=== PATIENT | female | born 1950 | race Caucasian/White ===

== ENCOUNTER → 2016-10-27 | Outpatient (CLI) | payer BC ==
[2016-10-27 11:21] LABS: BASO % 0.5 %; BASO ABS # 0.02 K/uL (0-0.2); COMPLETE YES; EOS % 1.1 %; IG% 0.3 %; LYMPH % 41.8 %; LYMPH ABS # 1.55 K/uL (1.2-3.4); MEAN CELL VOLUME 96.8 fL (80-100); MEAN CORPUSCULAR HEMOGLOBIN 30.9 pg (25-34); MEAN CORPUSCULAR HGB CONC 31.9 g/dl (32-36); MEAN PLATELET VOLUME 9.6 fL (7.4-10.4); MONO % 5.9 %; NEUT % 50.4 %; PLATELET COUNT 209 K/uL (130-400); RED BLOOD COUNT 4.34 M/uL (4.2-5.4); WHITE BLOOD COUNT 3.71 K/uL (4.8-10.8)
[2016-10-27 11:37] LABS: CALCIUM 8.7 mg/dl (8.5-10.1)
[2016-10-27 11:40] LABS: ALB/GLOB RATIO 1.1 (0.9-2); ALT/SGPT 24 U/L (12-78); BLOOD UREA NITROGEN 18 mg/dl (7-18); BUN/CREATININE RATIO 22.3 (10-20); CARBON DIOXIDE 28 mmol/L (21-32); CHLORIDE 108 mmol/L (98-107); CHOLESTEROL 222 mg/dl (0-200); CREATININE 0.81 mg/dl (0.60-1.20); GLUCOSE 79 mg/dl (70-99); POTASSIUM 3.9 mmol/L (3.5-5.1); SODIUM 144 mmol/L (136-145); TRIGLYCERIDES 119 mg/dl (0-150); VERY LOW DENSITY LIPOPROT CALC 24 mg/dl
[2016-10-27 11:50] LABS: ALKALINE PHOSPHATASE 62 U/L (45-117); AST/SGOT 21 U/L (15-37); CHOLESTEROL/HDL RATIO 2.8; HDL CHOLESTEROL 78 mg/dl; LDL CHOLESTEROL CALCULATED 120 mg/dl
== END | disposition home or self-care (01) ==
LOC: C.LABBC 07:43
PROVIDERS: ATTEND Internal Medicine
DX: Z00.00 Encounter for general adult medical examination without abnormal findings (principal); Z13.220 Encounter for screening for lipoid disorders; Z13.29 Encounter for screening for other suspected endocrine disorder

== ENCOUNTER → 2017-05-04 | Day surgery (SDC) | payer BC ==
[2017-04-28 07:37] VITALS: Ht 167.6 cm; Wt 63.2 kg
[~2017-05-04] VITALS: Ht 167.6 cm; Wt 63.2 kg
[~2017-05-04] MED LIST: 500ML BSS 0.3ML EPI 1:1000PF IRRIG ONE; ACETAMINOPHEN 325 MG TAB PO PRN; AMVISC PLUS 0.8ML SYRINGE INT OCU ONE; ATROPINE SULFATE 0.1 MG/ML 5ML SYR IV PRN; BRIM0.2S OPB; BRIMONIDINE TART 0.2% OP SOLN PER DROP CHARGE ONE; BSS FLUSH ONE; CALC600T9 PO; DICL-201 PO; EFIN1SOL TOP; ENDOCOAT 0.85ML SYRINGE INT OCU ONE; ESTR0.5T3 PO; EpINEphrine INJ 1MG/ML AMP 1 MG/ML AMP ONE; FENTANYL CITRATE INJ 50 MCG/1 ML 2 ML VIAL ONE; LACTATED RINGER'S 1000ML 500 ML IV SCH; LATA0.5S OPB; LIDOCAINE 4% OP SOLN DROP CHARGE ONE; LIDOCAINE 4% OP SOLN DROP CHARGE OPR SCH; LIDOCAINE HCL 1% MPF 2 ML VIAL ONE; LIFI5DRO OPB; MIDAZOLAM HCL 1 MG/ML 2ML VIAL ONE; MOXIFLOXACIN OPH SOLN PER DROP CHARGE ONE; MULT-506 PO; OMEP40CA41 PO; POVIDONE-IODINE OP SOLN 30 ML BTL ONE; PROG100C6 PO; PROPARACAINE 0.5% OP SOLN PER DROP CHARGE OPR SCH; PROPARACAINE HCL 0.5% OP SOLN 15 ML BTL OPR ONE; TOBRAMYCIN/DEXAMETHASONE OPH OINT PER APPLN CHARGE ONE
[2017-05-04] MEDS: PHENYLEPHRINE HCL 2.5% OP SOLN PER DROP CHARGE OPR SCH ×2 (08:39→08:47)
[2017-05-04] MEDS: TROPICAMIDE 1% OP SOLN PER DROP CHARGE OPR SCH ×2 (08:40→08:48)
[2017-05-04] MEDS: CYCLOPENTOLATE HCL 1% OP SOLN PER DROP CHARGE OPR SCH ×2 (08:43→08:49)
[2017-05-04] MEDS: KETOROLAC 0.5% OP SOLN PER DROP CHARGE OPR SCH ×2 (08:45→08:49)
[2017-05-04] MEDS: MOXIFLOXACIN OPH SOLN PER DROP CHARGE OPR SCH ×2 (08:46→08:52)
--- NOTE | 2017-05-04 08:56 | History & Physical Bridge - [place] ---
H&P Re-Evaluation Bridge Note: I have examined the patient, reviewed the History & Physical and in the interval since the performance of the History & Physical I have noted the following changes of clinical significance: No changes noted
[2017-05-04 10:12] VITALS: TEMP 36.1
--- NOTE | 2017-05-04 10:12 | Discharge Instructions-SurgCtr ---
Discharge Instructions Date of Service May 04, 2017. Visit Reason for Visit: Cataract Right Eye Discharge Discharge Diagnosis / Problem: cataract left eye Discharge Goals Goal(s): Improve function Activity Recommendations Activity Limitations: per Instructions/Follow-up section Lifting Limitations: no more than 5 pounds Anesthesia . Post Anesthesia Instructions: If you have had General Anesthesia or IV Sedation: * Do not drive today. * Resume driving when surgeon permits. * Do not make important decisions or sign legal documents today. * Call surgeon for: 1. Temperature elevations greater than 101 degrees F. 2. Uncontrollable pain. 3. Excessive bleeding. 4. Persistent nausea and vomiting. 5. Medication intolerance (nausea, vomiting or rash). * For nausea and vomiting use only clear liquids such as: tea, soda, bouillon until nausea subsides, then gradually increase diet as tolerated. * If you have any concerns or questions, call your surgeon's office. If physician is unavailable and it is an emergency, call 911 or go to the nearest emergency room. . Instructions / Follow-Up Instructions / Follow-Up ACTIVITY RECOMMENDATIONS: * Light activities * You may walk outside, read, watch television. * Mild irritation and blurred vision are common for the first few days, redness around the white part of the eye is common. MEDICATIONS: Resume previous medications unless instructed otherwise by your surgeon. Eye drops (today and tomorrow): Cipro - one drop in operative eye every 2 hours while awake Prednisolone 1% - one drop in operative eye every 2 hours while awake Ilevro - one drop in operative eye 1 x a day Combigan - one drop in both eyes twice daily Latanoprost - one drop both eyes 1 times daily SPECIAL CARE INSTRUCTIONS: * If any problems or concerns, please call Dr. Live's office at . * Keep plastic shield taped over eye to sleep at night. * Keep plastic shield taped over eye except to administer eye drops. * Keep plastic shield on until office visit the following day. FOLLOW UP VISIT: Follow-up with Dr. Live in the [place] office as scheduled. If not already scheduled, please call the office at . Diet Recommendations Home Diet: resume previous diet Procedures Procedures Performed: Right Cataract Phacoemulsification With Intraocular Lens Implant; Toric Lens Pending Studies Studies pending at discharge: no Medical Emergencies . Who to Call and When: Medical Emergencies: If at any time you feel your situation is an emergency, please call 911 immediately. . Non-Emergent Contact Non-Emergency issues call your: Repairing Calibrator . . "Provider Documentation" section prepared by Dylan Live. .
--- NOTE | 2017-05-04 10:16 | [facility] Operative Report ---
Operative Report Operative Date May 04, 2017. Pre-Operative Diagnosis Cataract right eye Post-Operative Diagnosis Same Procedure(s) Performed Right Cataract Phacoemulsification With Intraocular Lens Implant; Toric Lens and femtosecond laser Surgeon Public Safety Director Surgeon(s) None Estimated Blood Loss Zero Findings cataract right eye Fluids (cc crystalloids) see anesthesia record Specimens None Drains none Anesthesia local with sedation Complication(s) None Disposition Recovery Room / PACU Implants ajit [id number] 20.0 Indications decreased vision right eye Description of Procedure After informed consent was obtained in the holding area the patient was wheeled back to the femtosecond laser room where the right eye was docked with the laser. The laser was used to make the primary incision, capsular rhexis and prechop of the lens. The patient was then taken to the operating room where cardiac monitoring leads and oxygen by nasal cannula was administered by Anesthesia. Gentle IV sedation was given, and the patient's right eye was prepped and draped in usual sterile fashion. A wire lid speculum was placed into the right eye and the operating microscope was swung into position. Using 0.12 forceps and a Supersharp blade a paracentesis port was made 2 o'clock hours away from the 9 o'clock position of the patient's right eye. 1% non-preserved Lidocaine was then injected into the anterior chamber for anesthesia. Endocoat was injected into the anterior chamber. A Paul spatula was then used to enter the shelved clear corneal incision at the 9 o'clock position of the right eye. Amvisc was injected into the anterior chamber and a cystotome and Utrata forceps were used to perform a curvilinear capsulorrhexis. BSS on a hydrodissection cannula was used to hydrodissect the lens nucleus away from the capsular bag. The phacoemulsification handpiece was then used in a stop and chop fashion to remove the lens nucleus. The irrigation and aspiration handpiece was then used to remove the residual cortical material. Amvisc was injected into the capsular bag and anterior chamber and a AJIT XYF191 20.0 Diopter intraocular lens was injected into the capsular bag. Irrigation and aspiration handpiece was used to remove the residual viscoelastic material. The wounds were hydrated and noted to be watertight. The wire lid speculum was removed from the eye. Vigamox, Brimonidine, and TobraDex ointment were placed on the eye and it was shielded. It should be noted that EndoCoat was used extensively during the case to protect the cornea endothelium. DISPOSITION: The patient tolerated the procedure well and was wheeled to the post anesthesia care unit in stable condition. I attest to the content of the Intraoperative Record and any orders documented therein. Any exceptions are noted below. I attest to the content of the Intraoperative Record and any orders documented therein. Any exceptions are noted below.
[2017-05-04 10:36] VITALS: BP 109/71; PULSE 58; O2SAT 100
--- NOTE | 2017-05-04 10:45 | Anesthesia Progress Nt - [facility] ---
Anesthesia Post Op Note Date & Time May 04, 2017 at 10:45 Vital Signs Pain Intensity: 0 Vital Signs Past 12 Hours Date Time Temp Pulse Resp B/P (MAP) Pulse Ox O2 Delivery O2 Flow Rate FiO2 05/04/17 10:36 58 16 109/71 (84) 100 Room Air 05/04/17 10:12 36.1 61 16 111/65 (80) 100 Room Air 05/04/17 09:43 60 16 139/101 99 05/04/17 09:40 61 16 137/72 100 05/04/17 08:30 36.3 70 18 115/76 (89) 100 Room Air Notes Mental Status: alert / awake / arousable, participated in evaluation Pt Amnestic to Procedure: Yes Nausea / Vomiting: adequately controlled Pain: adequately controlled Airway Patency, RR, SpO2: stable & adequate BP & HR: stable & adequate Hydration State: stable & adequate Anesthetic Complications: no major complications apparent
== END | disposition home or self-care (01) ==
LOC: X.SURG 08:15
PROVIDERS: ATTEND Ophthalmology
DX: H25.11 Age-related nuclear cataract, right eye (principal); K21.9 Gastro-esophageal reflux disease without esophagitis

== ENCOUNTER → 2017-09-08 | Outpatient (CLI) | payer OTHER ==
[~2017-09-08] MED LIST changes: -500ML BSS 0.3ML EPI 1:1000PF IRRIG ONE; -ACETAMINOPHEN 325 MG TAB PO PRN; -AMVISC PLUS 0.8ML SYRINGE INT OCU ONE; -ATROPINE SULFATE 0.1 MG/ML 5ML SYR IV PRN; -BRIMONIDINE TART 0.2% OP SOLN PER DROP CHARGE ONE; -BSS FLUSH ONE; -ENDOCOAT 0.85ML SYRINGE INT OCU ONE; -EpINEphrine INJ 1MG/ML AMP 1 MG/ML AMP ONE; -FENTANYL CITRATE INJ 50 MCG/1 ML 2 ML VIAL ONE; -LACTATED RINGER'S 1000ML 500 ML IV SCH; -LIDOCAINE 4% OP SOLN DROP CHARGE ONE; -LIDOCAINE 4% OP SOLN DROP CHARGE OPR SCH; -LIDOCAINE HCL 1% MPF 2 ML VIAL ONE; -MIDAZOLAM HCL 1 MG/ML 2ML VIAL ONE; -MOXIFLOXACIN OPH SOLN PER DROP CHARGE ONE; -POVIDONE-IODINE OP SOLN 30 ML BTL ONE; -PROPARACAINE 0.5% OP SOLN PER DROP CHARGE OPR SCH; -PROPARACAINE HCL 0.5% OP SOLN 15 ML BTL OPR ONE; -TOBRAMYCIN/DEXAMETHASONE OPH OINT PER APPLN CHARGE ONE
[2017-09-08 13:24] LABS: BASO % 0.2 %; BASO ABS # 0.01 K/uL (0-0.2); EOS % 2.5 %; EOS ABS # 0.13 K/uL (0-0.5); HEMATOCRIT 43.1 % (37-47); HEMOGLOBIN 14.1 g/dL (12.0-16.0); IG# 0.01 K/uL (0.00-0.02); LYMPH % 28.4 %; LYMPH ABS # 1.45 K/uL (1.2-3.4); MEAN CELL VOLUME 95.4 fL (80-100); MEAN CORPUSCULAR HEMOGLOBIN 31.2 pg (25-34); MEAN CORPUSCULAR HGB CONC 32.7 g/dl (32-36); MEAN PLATELET VOLUME 9.3 fL (7.4-10.4); MONO % 7.6 %; MONO ABS # 0.39 K/uL (0.11-0.59); NEUT % 61.1 %; NEUT ABS # 3.11 K/uL (1.4-6.5); PLATELET COUNT 221 K/uL (130-400); RED CELL DISTRIBUTION WIDTH CV 13.2 % (11.5-14.5); RED CELL DISTRIBUTION WIDTH SD 45.5 fL (36.4-46.3)
[2017-09-08 14:05] LABS: ALBUMIN 3.7 gm/dl (3.4-5.0); ALT/SGPT 27 U/L (12-78); AST/SGOT 24 U/L (15-37); BLOOD UREA NITROGEN 28 mg/dl (7-18); CALCIUM 9.3 mg/dl (8.5-10.1); CARBON DIOXIDE 28 mmol/L (21-32); CREATININE 0.88 mg/dl (0.60-1.20); GLUCOSE 85 mg/dl (70-99); POTASSIUM 4.2 mmol/L (3.5-5.1); SODIUM 137 mmol/L (136-145)
[2017-09-08 14:08] LABS: ALKALINE PHOSPHATASE 63 U/L (45-117); TOTAL PROTEIN 7.2 gm/dl (6.4-8.2)
== END | disposition home or self-care (01) ==
LOC: C.LABBC 11:19
PROVIDERS: ATTEND Family Medicine Adult Medicine
DX: Z00.00 Encounter for general adult medical examination without abnormal findings (principal); D72.819 Decreased white blood cell count, unspecified

== ENCOUNTER 2020-03-16 06:16 | Inpatient (IN) ==
--- NOTE | 2020-03-02 14:45 | PAT Medication Instructions ---
Medication Instructions Date of Service March 02, 2020 Home Medications Medication Instructions Recorded diphenoxylate-atropine 2.5 1 tab PO .COMPLEX PRN #120 tab 12/31/18 mg-0.025 mg tablet progesterone micronized 100 mg See Rx Instructions .ROUTE 06/07/19 capsule .COMPLEX #42 capsule omeprazole 40 mg capsule,delayed 40 mg PO QAM #90 cap 08/03/19 release estradiol 0.5 mg tablet 0.5 mg PO QPM #90 tab 09/01/19 diclofenac sodium 75 mg 75 mg PO BID #180 tab 09/09/19 tablet,delayed release diphenoxylate-atropine 2.5 mg-0.025 mg tablet 1 tab PO .COMPLEX PRN Calcium 600 + D(3) 1 cap PO QAM Combigan 1 drp OPHTHALMIC (EYE) BID Jublia 1 applic TOPICAL HS Restasis 1 drp OPHTHALMIC (EYE) Q12H latanoprost (PF) 1 drp OPHTHALMIC (EYE) PM multivitamin 1 tab PO HS psyllium husk [Metamucil] 0.4 g PO TID progesterone micronized 100 mg capsule See Rx Instructions .ROUTE .COMPLEX omeprazole 40 mg capsule,delayed release 40 mg PO QAM estradiol 0.5 mg tablet 0.5 mg PO QPM diclofenac sodium 75 mg tablet,delayed release 75 mg PO BID Continue as directed progesterone micronized 100 mg capsule See Rx Instructions .ROUTE .COMPLEX (unless surgeon directs otherwise) estradiol 0.5 mg tablet 0.5 mg PO QPM (unless surgeon directs otherwise) ASK your surgeon for instructions diclofenac sodium 75 mg tablet,delayed release 75 mg PO BID STOP taking 24 hours before surgery Jublia 1 applic TOPICAL HS DO NOT take the morning of surgery psyllium husk [Metamucil] 0.4 g PO TID Calcium 600 + D(3) 1 cap PO QAM diphenoxylate-atropine 2.5 mg-0.025 mg tablet 1 tab PO .COMPLEX PRN Take morning of surgery With a small sip of water, OTHERWISE NOTHING TO EAT OR DRINK AFTER MIDNIGHT: omeprazole 40 mg capsule,delayed release 40 mg PO QAM Restasis 1 drp OPHTHALMIC (EYE) Q12H Combigan 1 drp OPHTHALMIC (EYE) BID Take evening before surgery diphenoxylate-atropine 2.5 mg-0.025 mg tablet 1 tab PO .COMPLEX PRN (if needed) Combigan 1 drp OPHTHALMIC (EYE) BID Restasis 1 drp OPHTHALMIC (EYE) Q12H latanoprost (PF) 1 drp OPHTHALMIC (EYE) PM multivitamin 1 tab PO HS psyllium husk [Metamucil] 0.4 g PO TID Other Notes If you have any questions please call us at [phone] or [phone] or [phone] or [phone]
--- NOTE | 2020-03-06 12:04 | Anesthesiology Consultation ---
Date of Service March 06, 2020 Assessment & Plan (1) Encounter for pre-operative examination: Chart Review Chart Review: Acceptable Risk for Surgery (pending preop Covid testing results ) and Patient seen in Pre Admission Testing Pt is a colon - concerned with ET tube- would like as much caution used as possible Per PAT appt on 03/06/20, pt traveled to [place] to sister's house. Did not go into public. Wears PPE. Returned around 01/30/20. No known Covid positive contacts or Covid related symptoms. Scheduled for preop Covid testing 03/09/20. Educated on importance of self quarantining, social distancing and wearing mask in public both for the patient and household contacts. Seen by PCP 01/09/20= seen for annual exam. Aware of ongoing neck pain- following with pain management. Addendum to PCP note 02/24/20= "Patient is now scheduled for cervical spine surgery. There has been no other interim changes to her health. SHe is thus medically stable to proceed." Teaching & Discussion Pre-Anesthesia Teaching/Discussion Notes: Instructed NPO after midnight before surgery,except medications with 15 cc of water. Medication instructions provided according to the PAT guidelines. History Surgery Operation Date: 03/16/20 12:50 Proposed Procedures p C4-C6 Anterior Cervical Discectomy and Fusion, C5 Corpectomy, Spinal Cord Monitoring - Ty Lara DO Height/Weight Height: 5 ft 6 in Weight: 63.8 kg Allergies Allergy/AdvReac Type Severity Reaction Status Date / Time No Known Allergies Allergy Verified 02/29/20 14:12 Medications Home Medications Medication Instructions Recorded Confirmed Last Taken diphenoxylate-atropine 2.5 1 tab PO .COMPLEX PRN #120 tab 12/31/18 02/29/20 02/20/19 mg-0.025 mg tablet Calcium 600 + D(3) 1 cap PO QAM 01/21/19 02/29/20 02/20/19 Combigan 1 drp OPHTHALMIC (EYE) BID 01/21/19 02/29/20 02/20/19 Jublia 1 applic TOPICAL HS 01/21/19 02/29/20 02/20/19 Restasis 1 drp OPHTHALMIC (EYE) Q12H 01/21/19 02/29/20 02/20/19 latanoprost (PF) 1 drp OPHTHALMIC (EYE) PM 01/21/19 02/29/20 02/20/19 multivitamin 1 tab PO HS 01/21/19 02/29/20 02/20/19 psyllium husk [Metamucil] 0.4 g PO TID 01/21/19 02/29/20 02/20/19 progesterone micronized 100 mg See Rx Instructions .ROUTE 06/07/19 02/29/20 Unknown capsule .COMPLEX #42 capsule omeprazole 40 mg capsule,delayed 40 mg PO QAM #90 cap 08/03/19 02/29/20 Unknown release estradiol 0.5 mg tablet 0.5 mg PO QPM #90 tab 09/01/19 02/29/20 Unknown diclofenac sodium 75 mg 75 mg PO BID #180 tab 09/09/19 02/29/20 Unknown tablet,delayed release Past Medical History Medical History (Updated 03/06/20 @ 16:25 by Amelia Blackman PA-C) Chronic back pain Chronic leukopenia Under observation by PCP - stable - WBC ct WNL at [facility] appt on 03/06/20 GERD (gastroesophageal reflux disease) Well controlled and stable with Omeprazole Glaucoma Stable -follows routinely with eye doctor Osteopenia Exercise / Class Metabolic Activity II 4-5 Yardwork/Stairs/Walk up hill (one flight of stairs - no chest pain or SOB - walks 7 miles daily ) Past Family History Family History Mother Family history of diabetes mellitus Myocardial infarction Denies family history of Ovarian cancer Prostate cancer Breast cancer Colorectal cancer Past Surgical History Surgical History History of cataract surgery bilat History of colonoscopy History of esophagogastroduodenoscopy (EGD) [place] teeth extracted Past Anesthesia History No Hx of Anesthesia Complications and No Family Hx of Anesthesia Complications History of PONV No Hx of PONV and No Hx of Motion Sickness Social History Smoking Status: Never smoker Do You Dip or Chew Tobacco: No Hx Alcohol Use: Yes Alcohol type: wine alcohol intake frequency: a few times a week Hx Substance Use: No substance use type: does not use Review of Systems Occ snoring - hx of sleep study- no BRADEN Patient denies chest pain, shortness of breath, dyspnea on exertion, cough, wheezing, palpitations. No hx of seizures, stroke, ID. No hx of blood clots or blood transfusions Physical Exam Vital Signs VITALS BP 137/83 P 67 TEMP 97.8 SP02 100% RESP 16 Constitutional no acute distress ENMT Mouth: no TMJ clicking Thyromental Distance: > or= 3.5 Finger Breadths (3.5) Mallampati Class: I Denies missing teeth Crowns to side teeth and molars Neck + limited neck extension (minimal ) Respiratory normal respiratory effort; no respiratory distress Auscultation: lungs clear to auscultation bilaterally; no wheezes Cardiovascular Rate/Rhythm: regular rate and regular rhythm Heart Sounds: no murmur Vessels: no carotid bruit Musculoskeletal Spine: + pain with cervical ROM (mild ) Neurologic moves all extremities Psychiatric Orientation: alert Testing Laboratory Results 03/06/20 12:45 03/06/20 12:45 PT 10.4 Seconds (9.0-12.0) 03/06/20 12:45 INR 1.0 (0.9-1.1) 03/06/20 12:45 APTT 26.6 Seconds (21.0-31.0) 03/06/20 12:45 Urine Color Yellow 03/06/20 12:45 Urine Appearance Clear (Clear) 03/06/20 12:45 Urine pH 6.5 (4.5-7.5) 03/06/20 12:45 Ur Specific [place] 1.010 (1.000-1.030) 03/06/20 12:45 Urine Protein Negative (Negative) 03/06/20 12:45 Urine Glucose (UA) Negative (Negative) 03/06/20 12:45 Urine Ketones Negative (Negative) 03/06/20 12:45 Urine Nitrite Negative (Negative) 03/06/20 12:45 Ur Leukocyte Esterase Negative (Negative) 03/06/20 12:45 Blood Type O Positive 03/06/20 12:45 Antibody Screen NEGATIVE 03/06/20 12:45 Electrocardiogram Date: 03/06/20 Findings: + SB @ (57) Chest X-Ray Date: 03/06/20 Findings: + NAD
--- NOTE | 2020-03-06 13:10 | XRay Report ---
XR chest Pre-admission PA/Lat CLINICAL HISTORY: Preoperative chest COMPARISON STUDY: No previous studies for comparison. FINDINGS: The cardiac and mediastinal contours are normal. There is no evidence of focal pulmonary co nsolidation. There is no evidence of failure. No pleural effusions are visualized.[ IMPRESSION: No active disease in the chest. ACT 112: Negative or not required by law. Electronically signed by: Aly Clemons M.D. 03/06/2020 1:08 PM
[2020-03-06 13:35] LABS: Appearance Urine Clear (Clear); Bilirubin Urine Negative (Negative); Blood Urine Negative (Negative); Color Urine Yellow; Glucose Urine UA Negative (Negative); Ketones Urine Negative (Negative); Leukocyte Esterase Urine Negative (Negative); Nitrite Urine Negative (Negative); Protein Urine Negative (Negative); Urobilinogen Urine Negative (Negative); pH Urine 6.5 (4.5-7.5)
[2020-03-06 13:36] LABS: Basophils # (auto) 0.03 K/uL (0-0.2); Basophils % (auto) 0.6 %; Eosinophils % (auto) 1.8 %; Hematocrit (blood only) 42.1 % (37-47); Hemoglobin 13.5 g/dL (12.0-16.0); Lymphocytes # (auto) 1.91 K/uL (1.2-3.4); Lymphocytes % (auto) 35.3 %; Mean Corpuscular Hemoglobin 30.8 pg (25-34); Mean Corpuscular Hgb Conc 32.1 g/dL (32-36); Mean Corpuscular Volume 95.9 fL (80-100); Mean Platelet Volume 9.2 fL (7.4-10.4); Monocytes # (auto) 0.37 K/uL (0.11-0.59); Monocytes % (auto) 6.8 %; Neutrophils % (auto) 55.5 %; Platelet Count 211 K/uL (130-400); RDW Coefficient of Variation 13.3 % (11.5-14.5); RDW Standard Deviation 46.8 fL (36.4-46.3); Red Blood Count 4.39 M/uL (4.2-5.4); White Blood Count 5.41 K/uL (4.8-10.8)
[2020-03-06 13:47] LABS: Partial Thromboplastin Time 26.6 Seconds (21.0-31.0); Prothrombin Time 10.4 Seconds (9.0-12.0)
[2020-03-06 14:23] LABS: BUN Creatinine Ratio 25.2 (10-20); Calcium 9.1 mg/dl (8.5-10.1); Creatinine Clr Calc Pharmacy 61.6 ml/min; Est GFR (African American) 84.6; Potassium 4.9 mmol/L (3.5-5.1)
--- NOTE | 2020-03-06 16:22 | Electrocardiogram Report ---
Test Reason : Blood Pressure : / mmHG Vent. Rate : 057 BPM Atrial Rate : 057 BPM P-R Int : 170 ms QRS Dur : 070 ms QT Int : 424 ms P-R-T Axes : 065 011 055 degrees QTc Int : 412 ms Sinus bradycardia Otherwise normal ECG No previous ECGs available Confirmed by Lamberto Lopez ([id number]) on 03/06/2020 4:21:30 PM Referred By: Ty Lara Confirmed By:Lamberto Lopez
[~2020-03-16 06:16] MED LIST changes: +ACETAMINOPHEN 500 MG TAB PO SCH; -BRIM0.2S OPB; -CALC600T9 PO; +CeleBREX 200 MG CAP PO SCH; -DICL-201 PO; -EFIN1SOL TOP; -ESTR0.5T3 PO; +GABAPENTIN 300 MG CAP PO SCH; -LATA0.5S OPB; -LIFI5DRO OPB; +LR 15ML/HR IV SCH; -MULT-506 PO; -OMEP40CA41 PO; -PROG100C6 PO; +ceFAZolin 1000MG 1,000 MG/7.5 ML SYR IV SCH
[2020-03-16] MEDS ORDERED: KETAMINE 50 MG/5 ML SYRINGE ONE (06:51)
[2020-03-16] MEDS ORDERED: ONDANSETRON INJ 2 MG/ML 2 ML VIAL ONE (06:51)
[2020-03-16] MEDS ORDERED: LIDOCAINE HCL 2% 2 ML VIAL/AMP(20MG/ML) INFIL ONE (06:51)
[2020-03-16] MEDS ORDERED: PROPOFOL IV EMULSION 10 MG/ML 20 ML VIAL IV ONE (06:51)
[2020-03-16] MEDS ORDERED: MIDAZOLAM HCL 1 MG/ML 2ML VIAL ONE (06:51)
[2020-03-16] MEDS ORDERED: DEXAMETHASONE SOD INJ 4 MG/ML VIAL ONE (06:51)
[2020-03-16] MEDS ORDERED: fentaNYL citrate 100 MCG/2 ML VIAL ONE (06:51)
[2020-03-16] MEDS ORDERED: PROMETHAZINE HCL 6.25 MG in SODIUM CHLORIDE 0.9% 50 ML IV PRN (07:00)
[2020-03-16] MEDS ORDERED: ONDANSETRON INJ 2 MG/ML 2 ML VIAL IV PRN ×2 (07:00→11:03)
[2020-03-16] MEDS ORDERED: HYDROmorphone INJ 1 MG/ML SYRINGE IV PRN ×2 (07:00→11:03)
[2020-03-16] MEDS ORDERED: ATROPINE SULFATE 0.1 MG/ML 10ML SYR IV PRN (07:00)
[2020-03-16] MEDS ORDERED: BACITRACIN INJ 50,000 UNIT VIAL ONE (07:06)
--- NOTE | 2020-03-16 07:27 | History & Physical Bridge Note ---
Date of Service March 16, 2020 History & Physical Bridge Note I have examined the patient, reviewed the History & Physical and in the interval since the performance of the History & Physical I have noted the following changes of clinical significance: no changes noted
--- NOTE | 2020-03-16 07:28 | History & Physical Report ---
Date of Service March 16, 2020 Assessment & Plan (1) Cervical stenosis of spinal canal: Admission and Anticipated Discharge Date Admission Date: C4-C6 anterior cervical discectomy and fusion, C5 corpectomy History of Present Illness Chief Complaint: Neck and arm pain Primary Care Provider: Kalyani Blue MD This is a 69-year-old female who presents with chronic persistent neck and arm symptoms after failing a course of nonoperative care is here for surgical invention. Allergies Allergy/AdvReac Type Severity Reaction Status Date / Time No Known Allergies Allergy Verified 03/16/20 06:32 Home Medications Home Medications Medication Instructions Recorded Confirmed Type diphenoxylate-atropine 2.5 1 tab PO .COMPLEX PRN #120 tab 12/31/18 03/16/20 Rx mg-0.025 mg tablet Calcium 600 + D(3) 1 cap PO QAM 01/21/19 03/16/20 History Combigan 1 drp OPHTHALMIC (EYE) BID 01/21/19 03/16/20 History Jublia 1 applic TOPICAL HS 01/21/19 03/16/20 History Restasis 1 drp OPHTHALMIC (EYE) Q12H 01/21/19 03/16/20 History latanoprost (PF) 1 drp OPHTHALMIC (EYE) PM 01/21/19 03/16/20 History multivitamin 1 tab PO HS 01/21/19 03/16/20 History psyllium husk [Metamucil] 0.4 g PO TID 01/21/19 03/16/20 History progesterone micronized 100 mg See Rx Instructions .ROUTE 06/07/19 03/16/20 Rx capsule .COMPLEX #42 capsule omeprazole 40 mg capsule,delayed 40 mg PO QAM #90 cap 08/03/19 03/16/20 Rx release estradiol 0.5 mg tablet 0.5 mg PO QPM #90 tab 09/01/19 03/16/20 Rx diclofenac sodium 75 mg 75 mg PO BID #180 tab 09/09/19 03/16/20 Rx tablet,delayed release Past Med/Surg History Medical History (Updated 03/16/20 @ 07:28 by Ty Lara DO) Chronic back pain Chronic leukopenia Under observation by PCP - stable - WBC ct WNL at PAT appt on 03/06/20 GERD (gastroesophageal reflux disease) Well controlled and stable with Omeprazole Glaucoma Stable -follows routinely with eye doctor Osteopenia Surgical History History of cataract surgery bilat History of colonoscopy History of esophagogastroduodenoscopy (EGD) [place] teeth extracted Family History Mother Family history of diabetes mellitus Myocardial infarction Denies family history of Ovarian cancer Prostate cancer Breast cancer Colorectal cancer Social History Smoking Status: Never smoker Second Hand Exposure: No; Do You Dip or Chew Tobacco: No; Tobacco Cessation Education Requested by Patient: No Hx Alcohol Use: Yes Alcohol type: wine Alcohol Intake Frequency: 2-3 x/Week Hx Substance Use: No Preferred Language: Bangladeshi Communication Ability: Effective Visual Impairment: Limited Hearing Ability: Normal Coreroom Foundry Laborer Required: No Beliefs That Will Affect Care: None marital status: Current Living Situation: Spouse current occupational status: retired How many Children do You have: 0 Other Information That Helps Us Care for You: No Feels Safe at Home: Yes Safety Concerns: Feels Safe At This Time Childhood Exposure to Second-Hand Smoke: No caffeine: Yes Dental Care, Regularly: Yes Physical Activity Frequency: Daily Seatbelt Use: always Sunscreen Use: Yes Assistive Devices: Contacts and Glasses Assistive Devices Comment: several crowns in mouth Physical Exam Physical Exam: Patient is alert and oriented neurologically intact. Heart regular rate and rhythm. Lungs clear to auscultation Results & Data ([facility]) Vital Signs (Past 12 Hours) Vital Signs Temp Pulse Resp BP Pulse Ox 03/16/20 06:37 36.6 C 73 16 120/70 99
[2020-03-16] MEDS ORDERED: FLOSEAL HEMOSTATIC MATRIX 10ML TOP ONE (08:32)
--- NOTE | 2020-03-16 09:14 | Post Operative Brief Note ---
Immediate Post Op Note v1 Date of Surgery March 16, 2020 Pre & Post Diagnosis Operation Date: 03/16/20 07:45 Pre-Op Diagnosis: Cervical spinal stenosis with myeloradiculopathy Post-Op Diagnosis: Same I identified the patient and participated in the time-out.: Yes Procedure Operation Date: 03/16/20 07:45 Actual Procedures #1 anterior cervical corpectomy with bilateral foraminotomies C5. #2 anterior cervical arthrodesis C4-C6. #3 placement of peek cage 21 mm in height C4-C6. #4 placement locally harvested morselized autograft combined with DBM and the interbody cage. #5 application of 5 complete and screws from C4-C6. Surgeon Ty Lara DO Tape Recorder Repairer None Estimated Blood Loss 10 Findings Consistent with Post-Op Diagnosis Drains Mychal-Dowell Drain
--- NOTE | 2020-03-16 09:17 | Operative Report ---
Post Operative Report Pre & Post Diagnosis Operation Date: 03/16/20 07:45 Pre-Op Diagnosis: Cervical spinal stenosis with myeloradiculopathy Post-Op Diagnosis: Same I identified the patient and participated in the time-out.: Yes Procedure Operation Date: 03/16/20 07:45 Actual Proced #1 anterior cervical corpectomy C5. #2 anterior cervical arthrodesis C4-C6. #3 placement of 21 mm peek cage C4-C6. #4 placement locally harvested morselized autograft combined with DBM and the interbody cage. #5 application of 5 complete screws from C4-C6. Surgeon Ty Lara, DO Rounder Hand None Estimated Blood Loss 10 Findings Consistent with Post-Op Diagnosis Specimens None Indications This is a 69-year-old female who presents with above-mentioned diagnosis after failing course of care is here for the above-mentioned procedure. Description of Procedure Patient was met with identified informed consent obtained. Patient was then taken to the operative suite underwent an patient placed in the supine position the Mychal table the head [place] le. All bony prominences well-padded eyes inspected to ensure no external pressure placed upon them. This point the anterior cervical spine was prepped and draped in normal sterile fashion. Sharp dissection with the assistance of bipolar electrocautery was performed down to and exposing the anterior cervical spine from C4-C6. Self-retaining retractors placed. Then performed a complete discectomy of C4-5 out to the uncovertebral joints bilaterally followed by C5-C6. [place] distractor pins were then placed in C4 and C6 to distract across to see 5 vertebral body. A complete corpectomy was then performed including removal of all posterior annular fibers and longitudinal ligament for complete decompression. Endplates were burred to subcortical bleeding bone and a 21 mm peek cage filled with locally harvested morselized autograft and DBM tapped in position. Distracting apparatus was removed and a 5 complete screws applied with the assistance of fluoroscopy. Incision was then copiously irrigated explored to ensure no damage to surrounding structures remaining bleeding. 10 round FLAQUITA drain inserted. The incision was then closed with 1 Vicryl the fascia 2-0 Vicryl subcutaneously and 4 Monocryl for final skin closure. Steri-Strip sterile dressing was placed. Patient waken taken to PACU stable condition. Please note spinal cord monitoring was utilized at the procedure no changes noted. I attest to the content of the Intraoperative Record and any orders documented therein. Any exceptions are noted below.
--- NOTE | 2020-03-16 09:25 | Fluoroscopy Report ---
FL cervical 2-3V CLINICAL HISTORY: C4-C6 ACDF, C5 CORPECTOMY COMPARISON STUDY: None. FLUOROSCOPY TIME: 12 seconds. FINDINGS: 2 fluoroscopic spot images of the cervical spine demonstrate anterior cervical discectomy a nd fusion from C4 through C6 with C5 corpectomy and bone graft. The hardware appears intact. IMPRESSION: Fluoroscopy provided for C4-C6 ACDF. ACT 112: Negative or not required by law. Electronically signed by: Hema Holloway M.D. 03/16/2020 9:24 AM
--- NOTE | 2020-03-16 10:29 | Anesthesiology Progress Note ---
Date of Service March 16, 2020 Anesthesia Post Procedure Vital Signs Vital Signs: Temp Pulse Pulse Resp BP BP Pulse Ox 03/16/20 10:20 51 L 17 121/70 100 03/16/20 10:10 46 L 14 114/69 100 03/16/20 10:00 45 L 20 108/61 100 03/16/20 09:50 45 L 20 91/63 L 99 03/16/20 09:40 50 L 12 91/64 L 97 03/16/20 09:34 35.9 C L 67 20 106/76 98 03/16/20 06:37 36.6 C 73 16 120/70 99 Transfer of Care Handoff Completed per policy Notes Mental Status: alert / awake / arousable Patient Amnestic to Procedure: Yes Nausea / Vomiting: adequately controlled Pain: adequately controlled Airway Patency, RR, SpO2: stable & adequate BP & HR: stable & adequate Hydration State: stable & adequate Anesthetic Complications: no major complications apparent
[2020-03-16] MEDS ORDERED: traMADol HCL 50 MG TABLET PO PRN (11:03)
[2020-03-16] MEDS ORDERED: DO NOT ADMINISTER PNEUMOCOCCAL VACCINE PRN (11:03)
[2020-03-16] MEDS ORDERED: diphenhydrAMINE Capsule 25 MG CAP PO PRN (11:03)
[2020-03-16] MEDS ORDERED: NALOXONE HCL 0.4 MG/1 ML VIAL/CARP IV PRN (11:03)
[2020-03-16] MEDS ORDERED: DO NOT ADMINISTER FLU VACCINE PRN (11:03)
[2020-03-16] MEDS ORDERED: LORazepam 0.5 MG/1 ML VIAL IV PRN (11:03)
[2020-03-16] MEDS ORDERED: HYDROmorphone INJ 0.5 MG/0.5 ML SYR IV PRN (11:03)
[2020-03-16] MEDS ORDERED: ONDANSETRON 4 MG OD TAB PO PRN (11:03)
[2020-03-16] MEDS ORDERED: SOD PHOSPHATE/SOD BIPHOSPHATE ENEMA 132 ML BTL PR PRN (11:03)
[2020-03-16] MEDS ORDERED: RACEPINEPHRINE 2.25% NEBU SOLN 0.5 ML VIAL INH PRN (11:03)
[2020-03-16] MEDS ORDERED: MAGNESIUM HYDROXIDE SUSP 30 ML UDC PO PRN (11:03)
[2020-03-16] MEDS ORDERED: ALUMINUM/MAGNESIUM SUSP 30 ML UDC PO PRN (11:03)
[2020-03-16] MEDS ORDERED: METOCLOPRAMIDE HCL INJ 5 MG/ML 2 ML VIAL IV PRN (11:03)
[2020-03-16] MEDS ORDERED: ACETAMINOPHEN 1,000 MG/100 ML VIAL IV PRN (11:03)
[2020-03-16] MEDS ORDERED: hydrOXYzine HCl 25 MG TAB PO PRN (11:03)
[2020-03-16] MEDS ORDERED: LORazepam 0.5 MG TAB PO PRN (11:03)
[2020-03-16] MEDS ORDERED: PROMETHAZINE HCL 12.5 MG in SODIUM CHLORIDE 0.9% 50 ML IV PRN (11:03)
[2020-03-16] MEDS ORDERED: oxyCODONE HCL IR 5 MG TAB (IMMEDIATE RELEASE) PO PRN (11:03)
[2020-03-16] MEDS ORDERED: FAMOTIDINE 20 MG TAB PO PRN (11:03)
[2020-03-16] MEDS ORDERED: DEXAMETHASONE SOD PHOSPHATE 8 MG in SYRINGE 0 ML IV PRN (11:03)
[2020-03-16] MEDS: SODIUM CHLORIDE 0.9% 1000ML 1,000 ML IV SCH ×2 (11:45→20:50)
[2020-03-16] MEDS: ceFAZolin 1000MG 1,000 MG/7.5 ML SYR IV SCH (16:33)
[2020-03-16] MEDS: ACETAMINOPHEN 500 MG TAB PO PRN (20:13)
[2020-03-16] MEDS ORDERED: estradioL 1 MG TAB PO SCH (21:00)
[2020-03-16] MEDS ORDERED: LATANOPROST 0.005% OP SOLN 2.5 ML BTL OPB SCH (21:00)
[2020-03-16] MEDS ORDERED: DOCUSATE SODIUM/SENNA 50/8.6MG TAB PO SCH (21:00)
[2020-03-17] MEDS: ceFAZolin 1000MG 1,000 MG/7.5 ML SYR IV SCH (00:21)
[2020-03-17] MEDS: POLYETHYLENE (MIRALAX) 17 GM PACK PO SCH ×2 (06:01→12:17)
[2020-03-17] MEDS ORDERED: PANTOprazole 40 MG TAB PO SCH (09:00)
[2020-03-17] MEDS ORDERED: CALCIUM 600MG + VIT D 400 IU TAB PO SCH (09:00)
[2020-03-17] MEDS ORDERED: DEXAMETHASONE SOD PHOSPHATE 8 MG in SYRINGE 0 ML IV STA (10:30)
--- NOTE | 2020-03-17 10:30 | Discharge Summary ---
Date of Service March 17, 2020 Admission HPI Per Admitting Provider This is a 69-year-old female who presents with chronic persistent neck and arm symptoms after failing a course of nonoperative care is here for surgical invention. Principal Diagnosis Cervical spinal stenosis with myeloradiculopathy Discharge Data Allergies Allergy/AdvReac Type Severity Reaction Status Date / Time No Known Allergies Allergy Verified 03/16/20 06:32 Procedures Performed Operation Date: 03/16/20 07:45 Actual Procedures p C4-C6 Anterior Cervical Discectomy and Fusion, C5 Corpectomy, application of demineralized bone matrix, Spinal Cord Monitoring(Not Applicable) - Ty Lara DO Ordered Studies 03/16/20 07:45 FL cervical 2-3V Routine FL fluoroscopy <1hr Routine Hospital Course (1) Cervical stenosis of spinal canal: Patient underwent anterior cervical corpectomy and fusion tolerated so was taken to orthopedic for postop labor postop day 1 she was swallowing well no hoarseness excellent strength testing pain improved. FLAQUITA drain decreasing appropriately. Subsequently discharged home. Discharge orders instructions fr om the chart for further review. Total Time Total Time Spent Total Time Spent (In Minutes): 20 minutes Discharge Plan Discharge Items Patient Disposition: Home - Self-Care Reason For Visit: Spinal Stenosis, Cervical Region Discharge Diagnosis: Cervical spinal stenosis with myeloradiculopathy Activity: As commented below Non-emergency contact: Primary Care Provider Call non-emergency contact if: you have any medication questions Follow-up/Referrals: Kalyani Blue MD [Primary Care Provider] - Diet: Regular Addtl Attending Provider Instructions: ACTIVITY RECOMMENDATIONS: SELF CARE INSTRUCTIONS AFTER CERVICAL FUSIONS 1. No smoking. Smoking drastically decreases the chance of a solid fusion. 2. No bending, lifting more than 5 pounds, or twisting (roll like a log when turning in bed). 3. You may shower 3 days after surgery. Thoroughly dry wound. Do not soak in the tub. 4. Cervical collar: Must be worn at all times including sleeping. You may remove the brace only to bath, eat and if you are sitting in a recliner. 5. Please walk as much as you can for exercise. Gradually increase the distance that you walk as your endurance increases. SPECIAL CARE INSTRUCTIONS: VERY IMPORTANT TO READ AND REVIEW A. Do not take any anti-inflammatory medications (i.e. Indocin, Advil, Aspirin, Naprosyn, Aleve, Motrin, etc.) as these may inhibit the chance of a solid fusion. Tylenol is okay to take. B. Your surgical incision has been closed with a cosmetic suture under the skin that will dissolve in about 6 weeks. In 14 days, you can use a pair of clean scissors and cut the suture that is left outside of the skin at the ends of your incision. C. Complications are uncommon, but please contact us if you have any signs or symptoms of: 1. wound infection (fever higher than 102.5 degrees F, redness, separation of wound, drainage, or increasing pain from the incision) 2. blood clots in legs (pain, swelling, redness and warmth in legs) 3. urinary tract infection (fever higher than 102.5 degrees, burning upon urination or increased frequency of urination) 4. nerve problems (inability to walk on your toes or heels, numbness, loss of bowel or bladder control) 5. any other symptoms that concern you. D. Please call the office at if you have any concerns or questions about your operation or recovery. MANAGING PAIN AFTER SPINAL SURGERY 1. Narcotic medication is intended for short-term use and will be provided for surgical pain. Surgical pain usually lasts for a period of 4-6 weeks. Narcotic medication includes Percocet, Vicodin, Darvocet, Tylenol #3 or Lortab. 2. Longer-term pain is more appropriately treated with non-narcotic medication such as Tylenol ES. 3. Muscle spasm is not appropriately treated with narcotics. Muscle relaxers such as Soma, Flexeril or Skelaxin can be used along with Tylenol ES. 4. Remember that we all live with some "aches and pains". This is not unusual or uncommon after an injury or as we get older. 5. We will provide appropriate medication within the normal guidelines of their prescribed use. We will also be very cautious and aware of potential abuse and extended duration of patients' medication needs. 6. Please allow 2-3 days to process refills. Prescriptions will not be mailed but must be picked up at the office. FOLLOW UP VISIT: Keep your scheduled follow-up appointment. Any questions, please call the office at . Pending Studies at Discharge: No Stand-Alone Forms: [facility], Smoking Cessation Medications and DC Order Prescriptions: New tramadol 50 mg tablet 50 mg PO Q6H PRN (Reason: pain, moderate) Qty: 15 RF: 0 oxycodone 5 mg tablet 5 mg PO Q6H PRN (Reason: pain, severe) Qty: 15 RF: 0 Continued diphenoxylate-atropine [Lomotil] 2.5-0.025 mg tablet 1 tab PO .COMPLEX PRN (Reason: diarrhea) Qty: 120 RF: 0 progesterone micronized 100 mg capsule See Rx Instructions .ROUTE .COMPLEX Qty: 42 RF: 4 omeprazole 40 mg capsule,delayed release(DR/EC) 40 mg PO QAM Qty: 90 RF: 3 estradiol 0.5 mg tablet 0.5 mg PO QPM Qty: 90 RF: 3 Combigan 0.2-0.5 % Drops 1 drp OPHTHALMIC (EYE) BID RF: 0 Restasis 0.05 % Dropperette 1 drp OPHTHALMIC (EYE) Q12H RF: 0 multivitamin Tablet 1 tab PO HS RF: 0 Calcium 600 + D(3) 600 mg calcium- 200 unit Capsule 1 cap PO QAM RF: 0 psyllium husk [Metamucil] 0.4 gram Capsule 0.4 g PO TID RF: 0 Jublia 10 % Solution With Applicator 1 applic TOPICAL HS RF: 0 latanoprost (PF) 0.005 % Drops 1 drp OPHTHALMIC (EYE) PM RF: 0 Discontinued diclofenac sodium 75 mg tablet,delayed release (DR/EC) 75 mg PO BID Qty: 180 RF: 3 Discharge Orders: Discharge Order (Routine); Ordered 03/17/20 Ordered By: Ty Lara Admission Data Admit Date/Time: 03/16/20 09:37 Attending Provider: Ty Lara Admit Provider: Ty Lara Primary Care Provider: Kalyani Blue
[2020-03-17] MEDS: ACETAMINOPHEN 500 MG TAB PO PRN (11:42)
[2020-03-18] MEDS ORDERED: bisacodyL 10 MG SUPP PR PRN (09:19)
== END 2020-03-17 12:58 | disposition home or self-care (01) | DRG 472 ==
LOC: ASU 06:16 → 3E 09:37